=== PATIENT | female | born 1970 | race Caucasian/White ===

== ENCOUNTER 2016-11-29 15:53 | Inpatient (IN) | payer MEDICAID ==
[~2016-11-29] VITALS: Ht 180.3 cm; Wt 57.2 kg
[~2016-11-29 15:53] MED LIST: ALEN5TAB6; CINA60TA; CINA60TA PO; COLL100; LANS30CA10; LIP10; LIP20 PO; MYCO500T; MYCOPHENOLIC ACID PO; PRED5TAB PO; TACR1CAP; TACR1CAP PO; VITD2000 PO; ZOLP10TA2; ZOLP5TAB2 PO
[2016-11-29 16:14] VITALS: BP 110/58; PULSE 98; RESP 14; TEMP 97; O2SAT 99
[2016-11-29 16:26] LABS: BASOPHILS % (AUTO) 0.4 % (0.0-2.0); EOSINOPHILS # (AUTO) 0.4 K/uL (0.0-0.4); HEMATOCRIT 37.1 % (36-48); LYMPHOCYTES # (AUTO) 0.6 K/uL (1.0-5.5); LYMPHOCYTES % (AUTO) 6.1 % (20.5-51.5); MEAN CORPUSCULAR HEMOGLOBIN 25 pg (27-31); MEAN CORPUSCULAR HGB CONC 32 % (32-36); MEAN CORPUSCULAR VOLUME 78 fL (79.0-98.0); MONOCYTES # (AUTO) 0.7 K/uL (0.0-1.0); MONOCYTES % (AUTO) 7.1 % (1.7-9.3); NEUTROPHILS # (AUTO) 7.6 K/uL (1.8-7.7); NEUTROPHILS % (AUTO) 82.4 % (40.0-70.0); PLATELET COUNT (AUTO) 168 K/uL (130-430); RED BLOOD CELL COUNT(AUTO) 4.73 MIL/uL (4.2-6.2); RED CELL DISTRIBUTION WIDTH 13.7 % (9.0-15.0); WHITE BLOOD COUNT (AUTO) 9.3 K/uL (4.8-10.8)
[2016-11-29] MEDS ORDERED: NACL 0.9% 1,000 ML IV ONE (16:30)
[2016-11-29] MEDS ORDERED: PIPERACILLIN/TAZO 3.375 GM in NS 50 ML IV ONE (16:30)
--- NOTE | 2016-11-29 16:30 | NUR ---
Patient to ER bed 01 to gown for evaluation. Side rails up.
[2016-11-29 16:33] LABS: CALCIUM 10.3 mg/dL (8.4-11.0); CREATININE 1.75 mg/dL (0.55-1.30); POTASSIUM 3.5 mmol/L (3.5-5.1)
[2016-11-29 16:38] LABS: ALBUMIN 3.5 g/dL (3.4-4.8); TOTAL BILIRUBIN 0.3 mg/dL (0.0-1.0)
--- NOTE | 2016-11-29 16:45 | NUR ---
Pt brought by mother, A&O x4, pt c/o cough ,weakness and sore thorat x 3 days, afebrile at this time, skin pink and warm, cap refill <3, ambulatory, radial pulsses strong, pt denies N/V/D. pt denies chest pain.
--- NOTE | 2016-11-29 17:00 | NUR ---
Dr Asif at bedside examining patient
[2016-11-29] MEDS ORDERED: PIPERACILLIN/TAZOBACTAM 3.375 GM/VIAL (ZOSYN) IV ONE (17:34)
[2016-11-29 17:35] LABS: BILIRUBIN,URINE 1+ (NEGATIVE); BLOOD, URINE NEGATIVE (NEGATIVE); CLARITY/URINE HAZY (CLEAR); COLOR,URINE YELLOW (YELLOW); GLUCOSE,URINE NEGATIVE (NEGATIVE); KETONES,URINE TRACE (NEGATIVE); LEUKOCYTE ESTERASE ,URINE NEGATIVE (NEGATIVE); NITRITE, URINE NEGATIVE (NEGATIVE); PH,URINE 5.5 (5.0-8.0); PROTEIN URINE 1+ (NEGATIVE); UROBILINOGEN,URINE 0.2 (0.2-1.0)
--- NOTE | 2016-11-29 18:17 | NUR ---
Pt on stable condition, denies pain, VS WNl, medications well tolerated.
[2016-11-29] MEDS ORDERED: AZITHROMYCIN 500 MG in NS 250 ML IV ONE (18:45)
[2016-11-29] MEDS ORDERED: ASPIRIN 325 MG TABLET PO ONE (18:45)
--- NOTE | 2016-11-29 18:58 | NUR ---
Dr Asif at bedside to discuss plan of care
[2016-11-29] MEDS ORDERED: AZITHROMYCIN 500 MG/VIAL (ZITHROMAX) IV ONE (19:05)
--- NOTE | 2016-11-29 19:11 | NUR ---
Called placed to [facility] Charge for bed placement
--- NOTE | 2016-11-29 19:56 | NUR ---
Patient will be admitted to care of Dr Rico . Admitted to Tele unit. Will go to room 102A. Belongings list completed. Summary report printed. Report given to admitting RN .
[2016-11-29 19:58] VITALS: BP 110/58; PULSE 98; RESP 14; TEMP 97; O2SAT 99
--- NOTE | 2016-11-29 20:05 | NUR ---
ADMISSION RECEIVED PATIENT FROM ER, AOX4, VITALS STABLE. PLACED ON TELE MONITOR, SR, DENIES ANY PAIN OR DISCOMFORT AT THIS TIME. IV LINE TO LEFT FOREARM INTACT AND PATENT. SALINE LOCKED. POC DISCUSSED. VERBALIZED UNDERSTANDING. ORIENTED TO USE CALL LIGHT FOR NURSE ASSISTANCE. FAMILY AT BEDSIDE.
--- NOTE | 2016-11-29 20:20 | NUR ---
[facility] PATIENT FAMILY AND PATIENT HERSELF STATES SHE IS A [facility] PATIENT AND REQUESTED TO BE TRANSFERRED TONIGHT, PATIENT LEFT AMA AND SIGNED PAPER. IV LINE REMOVED TO LEFT FOREARM. HEART MONITOR REMOVED, PATIENT LEFT WITH ALL BELONGINGS ACCOUNTED FOR, ACCOMPANIED BY HER FAMILY. WHEELCHAIRED TO FRONT OF HOSPITAL ACCOMPANIED BY MARTELL.
--- NOTE | 2016-11-29 20:26 | NUR ---
MD OJEDAD DAYSI MOURA PAGED PRISCILA EDWARDS AT [phone] SPOKE WITH YULIYA.
[2016-11-29] MEDS ORDERED: AMOX500C2 PO (20:52)
[2016-11-29] MEDS ORDERED: MYCO360T3 PO (20:52)
[2016-11-29] MEDS ORDERED: LANS30CA56 PO (20:52)
[2016-11-29] MEDS ORDERED: DENO60DI SQ (20:52)
[2016-11-29 21:28] LABS: BACTERIA,URINE FEW /HPF (None Seen); RBC,URINE NONE SEEN /HPF (0-3); WBC,URINE 0-3 /HPF (0-3)
[2016-11-29 21:29] LABS: MUCUS,URINE 1+ /LPF (None Seen)
== END 2016-11-29 20:20 | disposition left against medical advice (07) | DRG 113 ==
LOC: SED 15:53 → STU 19:26
PROVIDERS: ADMIT Internal Medicine; ATTEND Internal Medicine
DX: J02.9 Acute pharyngitis, unspecified (principal); Z94.0 Kidney transplant status; I35.0 Nonrheumatic aortic (valve) stenosis; N18.9 Chronic kidney disease, unspecified; Z53.21 Procedure and treatment not carried out due to patient leaving prior to being seen by health care provider; Z88.1 Allergy status to other antibiotic agents; Z88.8 Allergy status to other drugs, medicaments and biological substances
CPT/HCPCS: 36415; 71020-TC; 80053; 81000-TC; 83605; 84484; 84703; 85025; 86403; 87040-TC; 87081; 87086; 93005; 96365; 96367; 99285; J0456; J2543

== ENCOUNTER 2017-07-04 13:04 | Emergency (ER) | payer MEDICAID ==
[~2017-07-04] VITALS: Ht 157.5 cm; Wt 49.9 kg
[~2017-07-04 13:04] MED LIST changes: -ALEN5TAB6; +AMOX500C2 PO; -CINA60TA; -COLL100; +DENO60DI SQ; -LANS30CA10; +LANS30CA56 PO; -LIP10; +MYCO360T3 PO; -MYCO500T; -MYCOPHENOLIC ACID PO; -TACR1CAP; -ZOLP10TA2
[2017-07-04 13:20] VITALS: BP_SYST 124
[2017-07-04] MEDS ORDERED: ONDANSETRON 4 MG ODT TAB PO ONE (13:30)
[2017-07-04 14:36] LABS: BASOPHILS # (AUTO) 0.1 K/uL (0.0-0.2); BASOPHILS % (AUTO) 0.7 % (0.0-2.0); EOSINOPHILS % (AUTO) 0.5 % (0.0-4.0); HEMATOCRIT 41.6 % (36-48); LYMPHOCYTES # (AUTO) 0.4 K/uL (1.0-5.5); MEAN CORPUSCULAR HEMOGLOBIN 25 pg (27-31); MEAN CORPUSCULAR HGB CONC 31 % (32-36); MEAN CORPUSCULAR VOLUME 80 fL (79.0-98.0); MONOCYTES # (AUTO) 0.4 K/uL (0.0-1.0); MONOCYTES % (AUTO) 3.8 % (1.7-9.3); NEUTROPHILS # (AUTO) 8.6 K/uL (1.8-7.7); PLATELET COUNT (AUTO) 185 K/uL (130-430); RED CELL DISTRIBUTION WIDTH 16.1 % (9.0-15.0); WHITE BLOOD COUNT (AUTO) 9.5 K/uL (4.8-10.8)
[2017-07-04 14:45] LABS: CALCIUM 10.4 mg/dL (8.4-11.0); CREATININE 1.7 mg/dL (0.55-1.30); POTASSIUM 3.4 mmol/L (3.5-5.1)
[2017-07-04 14:49] LABS: ALBUMIN 4.1 g/dL (3.4-4.8); TOTAL BILIRUBIN 0.5 mg/dL (0.0-1.0)
[2017-07-04 14:51] LABS: HEMOGLOBIN 12.9 g/dL (12.0-16.0)
[2017-07-04] MEDS ORDERED: KETOROLAC TROMETHAMINE 30 MG VIAL IVP ONE (15:00)
[2017-07-04] MEDS ORDERED: NACL 0.9% 1,000 ML IV ONE (15:00)
[2017-07-04] MEDS ORDERED: PREDNISONE 20 MG TABLET PO ONE (15:15)
[2017-07-04 16:20] LABS: BILIRUBIN,URINE 1+ (NEGATIVE); BLOOD, URINE NEGATIVE (NEGATIVE); CLARITY/URINE SL HAZY (CLEAR); COLOR,URINE YELLOW (YELLOW); GLUCOSE,URINE NEGATIVE (NEGATIVE); KETONES,URINE NEGATIVE (NEGATIVE); LEUKOCYTE ESTERASE ,URINE NEGATIVE (NEGATIVE); NITRITE, URINE NEGATIVE (NEGATIVE); PROTEIN URINE 2+ (NEGATIVE); UROBILINOGEN,URINE 0.2 (0.2-1.0)
[2017-07-04 16:35] LABS: BACTERIA,URINE MODERATE /HPF (None Seen); FINE GRANULAR CASTS,URINE 0-10 /LPF (None Seen); MUCUS,URINE 1+ /LPF (None Seen); RBC,URINE NONE SEEN /HPF (0-3)
[2017-07-04 17:05] VITALS: BP_SYST 117
== END 2017-07-04 17:05 | disposition home or self-care (01) ==
LOC: SED 13:04
DX: K52.9 Noninfective gastroenteritis and colitis, unspecified (principal); N39.0 Urinary tract infection, site not specified; N18.9 Chronic kidney disease, unspecified; Z94.0 Kidney transplant status; Z79.899 Other long term (current) drug therapy; Z88.1 Allergy status to other antibiotic agents
CPT/HCPCS: 36415; 80053; 81000; 81025; 82150; 83690; 85025; 87086; 96361; 96374; 99284; J1885; J7030; J7512; Q0162

== ENCOUNTER 2019-08-14 15:33 | Emergency (ER) | payer MEDICAID ==
[~2019-08-14] VITALS: Ht 154.9 cm; Wt 56.7 kg
[2019-08-14 16:22] VITALS: BP_SYST 117
[2019-08-14 17:28] LABS: BILIRUBIN,URINE NEGATIVE (NEGATIVE); BLOOD, URINE NEGATIVE (NEGATIVE); CLARITY/URINE CLEAR (CLEAR); COLOR,URINE YELLOW (YELLOW); GLUCOSE,URINE NEGATIVE (NEGATIVE); KETONES,URINE NEGATIVE (NEGATIVE); LEUKOCYTE ESTERASE ,URINE NEGATIVE (NEGATIVE); NITRITE, URINE NEGATIVE (NEGATIVE); PROTEIN URINE NEGATIVE (NEGATIVE); UROBILINOGEN,URINE 0.2 (0.2-1.0)
--- NOTE | 2019-08-14 18:00 | NUR ---
Patient to ER bed 6 to gown for evaluation. Side rails up.
--- NOTE | 2019-08-14 18:05 | NUR ---
pt provided a urine sample in the triage area.
--- NOTE | 2019-08-14 18:10 | NUR ---
pt arrives from home w/ c/o difficulty urinating. Pt reports having a kidney transplant in 2004. Pt is currently afebrile. Will continue to monitor.
--- NOTE | 2019-08-14 18:20 | NUR ---
ER at bedside examining patient.
--- NOTE | 2019-08-14 19:08 | NUR ---
Patient given written and verbal discharge instructions and verbalizes understanding. ER MD discussed with patient the results and treatment provided. Patient in stable condition. ID arm band removed. IV catheter removed intact and dressing applied, no active bleeding. Rx of Macrobid given. Patient educated on pain management and to follow up with PMD. Pain Scale 0/10.Opportunity for questions provided and answered. Medication side effect fact sheet provided.
[2019-08-14 19:17] VITALS: BP_SYST 117
== END 2019-08-14 19:08 | disposition home or self-care (01) ==
LOC: SED 15:33
DX: N39.0 Urinary tract infection, site not specified (principal); Z86.79 Personal history of other diseases of the circulatory system; Z88.1 Allergy status to other antibiotic agents; Z88.8 Allergy status to other drugs, medicaments and biological substances; Z79.899 Other long term (current) drug therapy
CPT/HCPCS: 81003; 99283

== ENCOUNTER 2022-06-25 13:45 | Emergency (ER) | payer MEDICAID ==
[~2022-06-25] VITALS: Ht 154.9 cm; Wt 53.1 kg
[~2022-06-25 13:45] MED LIST changes: -TACR1CAP PO; +TACR1CAP2 PO
[2022-06-25 13:49] VITALS: BP_SYST 147
--- NOTE | 2022-06-25 13:54 | NUR ---
Patient to ER bed 05 to gown for evaluation. Side rails up.
--- NOTE | 2022-06-25 14:00 | NUR ---
Pt brought by self, A&Ox4, pt presents to ER with pain /redness/ swelling under tongue since yesterday, skin pink and warm, cap refill <3, VSS, will cont to monitor.
--- NOTE | 2022-06-25 14:32 | NUR ---
DR GARZA IN ROOM FOR EXAM
[2022-06-25 15:31] LABS: BASOPHILS % (AUTO) 0.9 % (0.0-2.0); EOSINOPHILS # (AUTO) 0.1 K/uL (0.0-0.4); HEMATOCRIT 42.1 % (36-48); HEMOGLOBIN 13.9 g/dL (12.0-16.0); LYMPHOCYTES # (AUTO) 1.2 K/uL (1.0-5.5); LYMPHOCYTES % (AUTO) 24.1 % (20.5-51.5); MEAN CORPUSCULAR HEMOGLOBIN 31 pg (27-31); MEAN CORPUSCULAR HGB CONC 33 % (32-36); MEAN CORPUSCULAR VOLUME 93 fL (79.0-98.0); MONOCYTES # (AUTO) 0.3 K/uL (0.0-1.0); MONOCYTES % (AUTO) 6.8 % (1.7-9.3); NEUTROPHILS # (AUTO) 3.4 K/uL (1.8-7.7); NEUTROPHILS % (AUTO) 67.2 % (40.0-70.0); PLATELET COUNT (AUTO) 159 K/uL (130-430); RED BLOOD CELL COUNT(AUTO) 4.55 MIL/uL (4.2-6.2); WHITE BLOOD COUNT (AUTO) 5.1 K/uL (4.8-10.8)
[2022-06-25 16:00] VITALS: BP_SYST 147
--- NOTE | 2022-06-25 16:03 | NUR ---
Patient given written and verbal discharge instructions and verbalizes understanding. ER MD discussed with patient the results and treatment provided. Patient in stable condition. ID arm band removed.
== END 2022-06-25 16:03 | disposition home or self-care (01) ==
LOC: SED 13:45
DX: Z13.9 Encounter for screening, unspecified (principal); K14.8 Other diseases of tongue; Z88.1 Allergy status to other antibiotic agents; Z91.048 Other nonmedicinal substance allergy status; Z79.899 Other long term (current) drug therapy
CPT/HCPCS: 36415; 85025; 99283